=== PATIENT | female | born 1930 | race Hispanic/Latino ===

== ENCOUNTER 2018-07-05 11:05 | Day surgery (SDC) | payer MEDICARE ==
[2018-07-05 12:13] LABS: Basophils # (Auto) 0.1 K/mm3 (0.0-0.1); Basophils % (Auto) 0.9 % (0.0-1.8); Eosinophils # (Auto) 0.1 K/mm3 (0.0-0.4); Hematocrit 31.6 % (30.3-42.9); Hemoglobin 10.2 gm/dl (10.1-14.3); Lymphocytes # (Auto) 0.8 K/mm3 (1.2-5.4); Lymphocytes % (Auto) 9.8 % (13.4-35.0); Mean Corpuscular HGB Conc 32 % (30-34); Mean Corpuscular Volume 80 fl (79-97); Monocytes % (Auto) 12.1 % (0.0-7.3); Platelet Count 344 K/mm3 (140-440); Red Blood Count 3.98 M/mm3 (3.65-5.03); Red Cell Distribution Width 16.8 % (13.2-15.2)
[2018-07-05 12:14] LABS: Mean Corpuscular Hemoglobin 26 pg (28-32)
[2018-07-05 12:28] LABS: INR 1.17 (0.87-1.13)
[2018-07-05 12:29] LABS: Partial Thromboplastin Time 36.2 Sec. (24.2-36.6)
--- NOTE | 2018-07-05 14:43 | Short Stay Summary ---
Short Stay Documentation Date of service: 07/05/18 - History Principal diagnosis: right pleural effusion H&P: obtained from office Past Medical History: atrial fib, cancer, hypertension - Allergies and Medications Current Medications: Allergies Sulfa (Sulfonamide Antibiotics) Allergy (Verified 10/19/13 08:07) Hives Home Medications Medication Instructions Recorded Confirmed Last Taken Type Amlodipine Besylate 2.5 mg PO QDAY 10/19/13 07/05/18 07/04/18 History Warfarin Sodium 5 mg PO DAILY 10/19/13 07/05/18 06/29/18 History Atorvastatin [Lipitor] 40 mg PO QHS 01/15/15 07/05/18 07/04/18 History Benazepril (Nf) [Benazepril Tab] 10 mg PO QDAY 01/15/15 07/05/18 07/04/18 History Metoprolol Succinate [Metoprolol 200 mg PO QDAY 01/15/15 07/05/18 07/04/18 History SUCCINATE] Anastrozole (Nf) [Arimidex (Nf)] 1 mg PO DAILY 07/05/18 07/05/18 07/04/18 History amLODIPine [Norvasc] 5 mg PO DAILY 07/05/18 07/05/18 07/04/18 History - Physical exam General appearance: no acute distress Lungs: Other (decreased movement on right side) - Brief post op/procedure progress note Date of procedure: 07/05/18 Pre-op diagnosis: right pleural effusion Post-op diagnosis: same Procedure: US thoracentesis Anesthesia: local Findings: moderate right pleural effusion Surgeon: GAYATRI JAMISON Estimated blood loss: none Pathology: list (120cc) Specimen disposition: to lab Condition: stable - Hospital course Hospital course: uneventful - Disposition Condition at discharge: Good Disposition: DC-01 TO HOME OR SELFCARE Short Stay Discharge Plan Follow up with: SABRINA MCNEIL MD [Primary Care Provider] - 7 Days
--- NOTE | 2018-07-05 14:52 | Ultrasound Report ---
ULTRASOUND THORACENTESIS History: Right pleural effusion. Description of procedure: Informed consent was obtained. Sterile technique was utilized. 1% lidocaine for skin anesthesia. Using ultrasound guidance, a 5 [place]ian centesis needle was advanced into the right pleural space. There was spontaneous return of relatively clear yellow fluid. 1.1 L of fluid was aspirated. 120 cc of fluid was sent to the lab for analysis. No complications. Impression: Successful ultrasound-guided right thoracentesis.
--- NOTE | 2018-07-05 16:15 | XRay Report ---
FINAL REPORT EXAM: XR CHEST 1V AP HISTORY: post thoracentesis TECHNIQUE: X-ray chest, one view FINDINGS: There is a large mass in the right upper and midlung grubbs. There is evidence of a small right pleural fluid collection. There is no evidence of pneumothorax. There is prominence of the interstitial markings in both lungs. There is a cluster of nodular densities projected over left medial lung base. Cardiac silhouette appears to be enlarged. The thoracic aorta is tortuous with atherosclerotic vascular calcification. The bony structures are notable for degenerative change of the shoulder joints bilaterally. Visualization detail of the thoracic spine is limited. IMPRESSION: 1. Large mass in the right upper and midlung grubbs. 2. Evidence of a small right pleural fluid collection. 3. No evidence of pneumothorax. 4. Cluster of nodular densities projected over the left medial lung base.
[2018-07-05 17:18] LABS: Total Cells Counted 100 /mm3
[2018-07-05 18:58] VITALS: BP 122/65
[2018-07-10 08:47] LABS: Total Protein,Body Fluid 4.6 (15.0-45.0)
== END 2018-07-05 17:05 | disposition home or self-care (01) ==
LOC: CATHLABREC 11:05 → EDSTATUS 12:00 → CATHLABREC 17:05
PROVIDERS: ATTEND Specialist
DX: J90 Pleural effusion, not elsewhere classified (principal); I48.91 Unspecified atrial fibrillation; I10 Essential (primary) hypertension; M17.9 Osteoarthritis of knee, unspecified; E78.00 Pure hypercholesterolemia, unspecified; K21.9 Gastro-esophageal reflux disease without esophagitis; Z79.899 Other long term (current) drug therapy; Z79.01 Long term (current) use of anticoagulants; Z90.710 Acquired absence of both cervix and uterus; Z88.2 Allergy status to sulfonamides; Z87.891 Personal history of nicotine dependence; Z85.3 Personal history of malignant neoplasm of breast; Z98.890 Other specified postprocedural states
CPT/HCPCS: 32555; 36415; 71045; 84160; 85025; 85610; 85730; 87116; 88112; 88305; 88341; 88342; 89051

== ENCOUNTER 2018-07-23 09:36 | Day surgery (SDC) | payer MEDICARE ==
[2018-07-23 11:22] LABS: INR 1.29 (0.87-1.13); Partial Thromboplastin Time 35.4 Sec. (24.2-36.6)
[2018-07-23] MEDS ORDERED: XYLOCAINE 1% 20 mL ONE (11:45)
--- NOTE | 2018-07-23 12:39 | Short Stay Summary ---
Short Stay Documentation Date of service: 07/23/18 Narrative H&P: right pleural effusion - Allergies and Medications Current Medications: Allergies Sulfa (Sulfonamide Antibiotics) Allergy (Verified 10/19/13 08:07) Hives Home Medications Medication Instructions Recorded Confirmed Last Taken Type Amlodipine Besylate 2.5 mg PO QDAY 10/19/13 07/23/18 07/22/18 History Warfarin Sodium 5 mg PO DAILY 10/19/13 07/23/18 07/17/18 History 5mg Atorvastatin [Lipitor] 40 mg PO QHS 01/15/15 07/23/18 07/22/18 History 40mg Benazepril (Nf) [Benazepril Tab] 10 mg PO QDAY 01/15/15 07/23/18 07/22/18 History 10mg Metoprolol Succinate [Metoprolol 200 mg PO QDAY 01/15/15 07/23/18 07/23/18 07: 00 History SUCCINATE] Anastrozole (Nf) [Arimidex (Nf)] 1 mg PO DAILY 07/05/18 07/23/18 07/22/18 History 1mg - Physical exam General appearance: no acute distress Lungs: Other (decreased air movement on right) - Brief post op/procedure progress note Date of procedure: 07/23/18 Pre-op diagnosis: right pleural effusion Post-op diagnosis: same Procedure: US right thoracentesis Anesthesia: local Findings: large right pleural effusion Surgeon: GAYATRI JAMISON Estimated blood loss: none Pathology: list (120cc) Specimen disposition: to lab Condition: stable - Hospital course Hospital course: uneventful - Disposition Condition at discharge: Good Disposition: DC-01 TO HOME OR SELFCARE Short Stay Discharge Plan Follow up with: SABRINA MCNEIL MD [Primary Care Provider] - 7 Days
--- NOTE | 2018-07-23 13:00 | Ultrasound Report ---
ULTRASOUND THORACENTESIS History: Right pleural effusion Description of procedure: Informed consent was obtained. Sterile technique was utilized. 1% lidocaine for skin anesthesia. Using ultrasound guidance, a 5 [place]an centesis needle was advanced into the right pleural space. There was spontaneous return of clear yellow fluid. 1700 cc of fluid was aspirated. 120 cc of fluid was sent the lab for analysis. No complications. Impression: Successful ultrasound-guided right thoracentesis.
--- NOTE | 2018-07-23 13:44 | XRay Report ---
AP CHEST: HISTORY: Shortness of breath, right thoracentesis Recent right thoracentesis was performed in which 1700 cc of clear yellow fluid was removed. Followup chest x-ray demonstrates near-complete evacuation of the right pleural fluid. No pneumothorax. There is a large masslike lesion or consolidation in the right perihilar region measuring up to 10 cm. The left lung is clear. Heart size and pulmonary vascularity appear within normal limits. IMPRESSION: Near complete evacuation of the right pleural fluid. No pneumothorax. Large area of consolidation or mass in the right perihilar region. Please await CT chest with contrast for further evaluation.
[2018-07-23 14:05] VITALS: BP 123/53
--- NOTE | 2018-07-23 14:52 | Cat Scan Report ---
CT CHEST WITHOUT CONTRAST: HISTORY: Pulmonary nodule. COMPARISON: AP chest performed 07/05/18 and 07/23/18. TECHNIQUE: Helical CT in 1.25mm intervals without IV contrast. Sagittal and coronal reformatted images. FINDINGS: Thyroid gland: Normal. Tracheobronchial tree: Physiologic tracheobronchial calcifications are noted. The right upper lobe bronchus is occluded by a right upper lobe mass. Esophagus: Unremarkable. Heart: Normal size. Pericardium: Normal. Mediastinum: There is extensive soft tissue mass throughout the mediastinum most consistent with tumor extension or coalescent lymphadenopathy. Enlarged and coalescent lymph nodes are noted throughout the right paratracheal chain, precarinal chain, right hilar chain and subcarinal chain. There are moderate aortic calcifications. No evidence for aneurysm. Lung Lee: Mild underlying emphysematous changes are evident. There is a large mass throughout the right upper lobe measuring approximately 10.4 x 8.4 cm in axial plane. Tumor may extend into the right side of the mediastinum. There is infiltrate throughout much of the right lower lobe which is probably secondary to reexpansion pulmonary edema from recent ultrasound-guided thoracentesis performed the same day. A small right pleural effusion measuring 1.7 cm in thickness remains. Musculoskeletal: Osteopenia. Moderate thoracolumbar spondylosis. No suspicious bony lesion or acute fracture is appreciated. IMPRESSION: Large right upper lobe mass with numerous coalescent mediastinal lymph nodes as outlined above consistent with primary lung cancer. Emphysema. Small right pleural effusion with reexpansion pulmonary edema in the right lower lobe.
== END 2018-07-23 14:39 | disposition home or self-care (01) ==
LOC: CATHLABREC 09:36 → EDSTATUS 10:30 → CATHLABREC 14:39
PROVIDERS: ATTEND Specialist
DX: J90 Pleural effusion, not elsewhere classified (principal); J43.9 Emphysema, unspecified; R91.1 Solitary pulmonary nodule; M85.88 Other specified disorders of bone density and structure, other site; M47.895 Other spondylosis, thoracolumbar region; J81.1 Chronic pulmonary edema; I70.0 Atherosclerosis of aorta; I48.91 Unspecified atrial fibrillation; K21.9 Gastro-esophageal reflux disease without esophagitis; M19.90 Unspecified osteoarthritis, unspecified site; Z87.891 Personal history of nicotine dependence; Z79.899 Other long term (current) drug therapy; Z79.01 Long term (current) use of anticoagulants; Z88.2 Allergy status to sulfonamides; Z98.42 Cataract extraction status, left eye; Z98.41 Cataract extraction status, right eye; E78.00 Pure hypercholesterolemia, unspecified; Z98.890 Other specified postprocedural states; Z90.710 Acquired absence of both cervix and uterus
CPT/HCPCS: 32555; 36415; 71045; 71250; 84160; 85610; 85730; 87116; 88112; 88305; 88342